=== PATIENT | male | born 1965 | race Caucasian/White ===

== ENCOUNTER 2024-02-12 10:55 | Emergency (ER) | payer BC, OTHER ==
[2024-02-12 11:27] VITALS: RESP 18; TEMP 98.1
--- NOTE | 2024-02-12 11:43 | ED ---
Fall HPI - General Chief Complaint: Fall Stated Complaint: Fall Time Seen by Provider: 02/12/24 11:15 Source: patient, RN notes reviewed Mode of arrival: ambulatory - History of Present Illness Initial Comments: 58-year-old male presenting with low back pain x 4 days status post fall. Patient states he was sitting down on a chair and accidentally fell, hitting the metal chair onto his lower back on the way down. Patient reports the bruising started shortly after that and began in his lower back but has spread around his sides. He also reports a fluctuant mass in the middle of his lower back. Patient states his pain has been controlled, he has been able to work, and re ports he went golfing yesterday as well. He is mostly concerned about the bruising at this time and is concerned for internal bleed. Denies thinners. Denies numbness, tingling, weakness in his legs. Denies bowel or bladder incontinence. Patient did not hit his head or lose consciousness. - Related Data Home Medications Medication Instructions Recorded Confirmed HYDROcodone/APAP 5-325MG [Blanco 5 mg PO Q4-6H PRN 02/18/15 02/18/15 5-325] Meloxicam [Mobic] 7.5 mg PO DAILY 02/18/15 02/18/15 Omeprazole [PriLOSEC] 20 mg PO DAILY 02/18/15 02/18/15 lisinopriL [Prinivil] 20 mg PO BID 02/18/15 02/18/15 Allergies Allergy/AdvReac Type Severity Reaction Status Date / Time No Known Allergies Allergy Verified 02/12/24 11:04 Review of Systems ROS Statement: Those systems with pertinent positive or pertinent negative responses have been documented in the HPI. ROS Other: All systems not noted in ROS Statement are negative. Past Medical History Past Medical History: Hypertension History of Any Multi-Drug Resistant Organisms: None Reported Additional Past Surgical History / Comment(s): right ankle Past Psychological History: No Psychological Hx Reported Past Alcohol Use History: Occasional Past Drug Use History: None Reported General Exam Limitations: no limitations General appearance: alert, in no apparent distress Head exam: Present: atraumatic, normocephalic, normal inspection Eye exam: Present: normal appearance, PERRL, EOMI. Absent: scleral icterus, conjunctival injection, periorbital swelling ENT exam: Present: normal exam, mucous membranes moist Neck exam: Present: normal inspection. Absent: tenderness, meningismus, lymphadenopathy Respiratory exam: Present: normal lung sounds bilaterally. Absent: respiratory distress, wheezes, rales, rhonchi, stridor Cardiovascular Exam: Present: regular rate, normal rhythm, normal heart sounds. Absent: systolic murmur, diastolic murmur, rubs, gallop, clicks GI/Abdominal exam: Present: soft, normal bowel sounds. Absent: distended, tenderness, guarding, rebound, rigid Back exam: Present: full ROM, tenderness, other (Full range of motion and strength of bilateral lower extremities with full sensation and dorsalis pedis pulses bilaterally. No saddle anesthesia.). Absent: normal inspection (Black/blue contusions diffusely present on low back extending to bilateral sides into abdomen. There is colorless, fluctuant mass present along the lumbar portion of spine with mild tenderness to palpation. No warmth or drainage present.), CVA tenderness (R), CVA tenderness (L), paraspinal tenderness Neurological exam: Present: alert, oriented X3, CN II-XII intact Psychiatric exam: Present: normal affect, normal mood Skin exam: Present: warm, dry, intact. Absent: rash Course Vital Signs 02/12/24 11:02 Temperature 98.1 F Pulse Rate 102 H Respiratory 18 Rate Blood Pressure 149/90 O2 Sat by Pulse 99 Oximetry Medical Decision Making - Medical Decision Making Was pt. sent in by a medical professional or institution (, [facility], [employer]AT CLEANING SUPERVISOR, urgent care, hospital, or residential...) When possible be specific @ -No Did you speak to anyone other than the patient for history (EMS, parent, family, police, friend...)? What history was obtained from this source @ -Patient's family member supplemented history Did you review nursing and triage notes (agree or disagree)? Why? @ -I reviewed and agree with nursing and triage notes Were old charts reviewed (outside hosp., previous admission, EMS record, old EKG, old radiological studies, urgent care reports/EKG's, residential records)? Report findings @ -No old charts were reviewed Differential Diagnosis (chest pain, altered mental status, abdominal pain women, abdominal pain men, vaginal bleeding, weakness, fever, dyspnea, syncope, headache, dizziness, GI bleed, back pain, seizure, CVA, palpatations, mental h ealth, musculoskeletal)? @ -Differential Musculoskeletal Muscular strain, contusion, ligament sprain, fracture, arthritis, septic arthritis, bursitis, cellulitis, muscle spasm, nerve compression, DVT, arterial occlusion, herpes zoster, electrolyte abnormality, tumor.... This is not meant to be in all inclusive list EKG interpreted by me (3pts min.). @ -None X-rays interpreted by me (1pt min.). @ -None done CT interpreted by me (1pt min.). @ -CT abdomen pelvis revealed large collection posterior subcu tissues, possible large hematoma. No acute intra-abdominal abnormality. CT lumbar spine rev ealed L2 level degenerative disc changes greatest at L2-3, residual disc bulge at this level U/S interpreted by me (1pt. min.). @ -None done What testing was considered but not performed or refused? (CT, X-rays, U/S, labs)? Why? @ -None What meds were considered but not given or refused? Why? @ -None Did you discuss the management of the patient with other professionals (professionals i.e. , PA, BOAT CLEANING SUPERVISOR, lab, RT, psych nurse, social media coordinator, automatic machine attendant, teacher, traffic officer, pillowcase cleaner)? Give summary @ -No Was smoking cessation discussed for >3mins.? @ -No Was critical care preformed (if so, how long)? @ -No Were there social determinants of health that impacted care today? How? (Homelessness, low income, unemployed, alcoholism, drug addiction, transportation, low edu. Level, literacy, decrease access to med. care, prison, rehab)? @ -No Was there de-escalation of care discussed even if they declined (Discuss DNR or withdrawal of care, Hospice)? DNR status @ -No What co-morbidities impacted this encounter? (DM, HTN, Smoking, COPD, CAD, Cancer, CVA, ARF, Chemo, Hep., AIDS, mental health diagnosis, sleep apnea, morbid obesity)? @ -None Was patient admitted / discharged? Hospital course, mention meds given and route, prescriptions, significant lab abnormalities, going to OR and other per tinent info. @ -Patient was discharged. Patient was seen and evaluated for low back pain x 5 days with diffuse bruising status post mechanical fall. Vitals are within normal limits. Physical exam reveals large hematoma and diffuse back and flank bruising. There are no alarm symptoms present. Patient is neurovascularly intact. CT reveals large collection of posterior subcutaneous tissue, likely large hematoma, no acute intra-abdominal abnormality. Lab work remarkable for mildly elevated liver enzymes. Discussed findings with patient. There are no signs of emergent etiology at this time. Discussed hematoma well gradually resolve with time on its own. Supportive care discussed. Strict alarm/return symptoms discussed with patient and family member in detail and they show understanding and agree to plan. Advised follow-up with PCP for reevaluation and for further evaluation of liver enzymes. Patient discharged in stable condition. Case discussed with Dr. Patel Undiagnosed new problem with uncertain prognosis? @ -No Drug Therapy requiring intensive monitoring for toxicity (Heparin, Nitro, Insulin, Cardizem)? @ -No Were any procedures done? @ -No Diagnosis/symptom? @ -Hematoma of lower back Acute, or Chronic, or Acute on Chronic? @ -Acute Uncomplicated (without systemic symptoms) or Complicated (systemic symptoms)? @ -Uncomplicated Side effects of treatment? @ -No Exacerbation, Progression, or Severe Exacerbation? @ -No Poses a threat to life or bodily function? How? (Chest pain, [place], [place], pneumonia, PE, COPD, DKA, ARF, appy, cholecystitis, CVA, Diverticulitis, Homicidal, Suicidal, threat to staff... and all critical care pts) @ -Low likelihood - Lab Data Result diagrams: 02/12/24 12:21 02/12/24 12:21 Lab Results 02/12/24 02/12/24 02/12/24 Range/Units 12:21 12:21 12:21 WBC 8.1 (3.8-10.6) k/uL RBC 3.54 L (4.30-5.90) m/uL Hgb 12.0 L (13.0-17.5) gm/dL Hct 36.1 L (39.0-53.0) % MCV 102.2 H (80.0-100.0) fL MCH 33.9 (25.0-35.0) pg MCHC 33.2 (31.0-37.0) g/dL RDW 12.7 (11.5-15.5) % Plt Count 277 (150-450) k/uL MPV 7.7 Neutrophils % 74 % Lymphocytes % 14 % Monocytes % 5 % Eosinophils % 1 % Basophils % 1 % Neutrophils # 6.0 (1.3-7.7) k/uL Lymphocytes # 1.1 (1.0-4.8) k/uL Monocytes # 0.4 (0-1.0) k/uL Eosinophils # 0.1 (0-0.7) k/uL Basophils # 0.1 (0-0.2) k/uL Macrocytosis Slight PT 9.4 L (10.0-12.5) sec INR 0.8 (<1.2) APTT 22.4 (22.0-30.0) sec Sodium 137 (137-145) mmol/L Potassium 5.0 (3.5-5.1) mmol/L Chloride 104 (98-107) mmol/L Carbon Dioxide 26 (22-30) mmol/L Anion Gap 7 mmol/L BUN 16 (9-20) mg/dL Creatinine 0.93 (0.66-1.25) mg/dL Est GFR (CKD-EPI)AfAm >90 (>60 ml/min/1.73 sqM) Est GFR (CKD-EPI)NonAf >90 (>60 ml/min/1.73 sqM) Glucose 94 (74-99) mg/dL Calcium 9.4 (8.4-10.2) mg/dL Total Bilirubin 1.2 (0.2-1.3) mg/dL AST 88 H (17-59) U/L ALT 93 H (4-49) U/L Alkaline Phosphatase 75 (38-126) U/L Total Protein 7.2 (6.3-8.2) g/dL Albumin 4.6 (3.5-5.0) g/dL Disposition Clinical Impression: Traumatic hematoma of lower back Disposition: HOME SELF-CARE Condition: Stable Instructions (If sedation given, give patient instructions): Hematoma (ED) Additional Instructions: Please follow-up with PCP. Please return to the Emergency Department if sym ptoms worsen or any other concerns. Is patient prescribed a controlled substance at d/c from ED?: No Referrals: Daryn Dumont MD [Primary Care Provider] - 1-2 days Time of Disposition: 14:55
[2024-02-12 12:40] LABS: Basophils # (A) 0.1 k/uL (0-0.2); Basophils % (A) 1 %; Eosinophils # (A) 0.1 k/uL (0-0.7); Eosinophils % (A) 1 %; HCT 36.1 % (39.0-53.0); Lymphocytes # (A) 1.1 k/uL (1.0-4.8); Lymphocytes % (A) 14 %; MCH 33.9 pg (25.0-35.0); MCHC 33.2 g/dL (31.0-37.0); MCV 102.2 fL (80.0-100.0); Macrocytosis Slight; Mean Platelet Volume 7.7; Monocytes # (A) 0.4 k/uL (0-1.0); Monocytes % (A) 5 %; Neutrophils % (A) 74 %; Platelet Count 277 k/uL (150-450); RBC 3.54 m/uL (4.30-5.90); RDW 12.7 % (11.5-15.5); WBC 8.1 k/uL (3.8-10.6)
[2024-02-12 12:58] LABS: INR 0.8 (<1.2); Partial Thromboplastin Time 22.4 sec (22.0-30.0); Prothrombin Time 9.4 sec (10.0-12.5)
[2024-02-12 13:01] LABS: ALT 93 U/L (4-49); AST 88 U/L (17-59); African American GFR (CKD) >90 (>60 ml/min/1.73 sqM); Albumin 4.6 g/dL (3.5-5.0); Alkaline Phosphatase 75 U/L (38-126); Anion Gap 7 mmol/L; Blood Urea Nitrogen 16 mg/dL (9-20); Calcium 9.4 mg/dL (8.4-10.2); Carbon Dioxide 26 mmol/L (22-30); Chloride 104 mmol/L (98-107); Glucose 94 mg/dL (74-99); Non-African American GFR(CKD) >90 (>60 ml/min/1.73 sqM); Sodium 137 mmol/L (137-145); Total Bilirubin 1.2 mg/dL (0.2-1.3); Total Protein 7.2 g/dL (6.3-8.2)
--- NOTE | 2024-02-12 13:39 | CT ---
EXAMINATION TYPE: CT lumbar spine wo con DATE OF EXAM: 02/12/2024 COMPARISON: None HISTORY: low back pain/fall CT DLP: combined dlp 2087.6 mGycm CONTRAST: None TECHNIQUE: CT of the lumbar spine is performed on a spiral scan at 3 mm thick sections. Reconstructed images are performed in the coronal and sagittal planes. FINDINGS: T12-L1: There is narrowing of the disc height. No focal disc herniation or significant disc bulge is evident. No spinal canal stenosis or neural foraminal stenosis is present. L1-L2: There is narrowing of the disc height. Minimal vacuum disc phenomenon is present. No focal dis c herniation or significant disc bulge is evident. No spinal canal stenosis or neural foraminal manuel nosis is present L2-L3: There is loss of disc height this level. Vacuum disc phenomenon is present. Residual disc bulg ing is present with moderate anterior thecal sac impression. No AP spinal canal stenosis is present n eural foramen are patent. L3-L4: Broad Based disc bulge is present with moderate anterior thecal sac compression. No AP spinal canal stenosis is present. There is moderate foraminal narrowing. L4-L5: Pedicle screws are present L4-L5 and S1 this causes beam hardening artifact in some limitation . No obvious spinal canal stenosis is present. The neural foramen appear patent. L5-S1: Pedicle screws are present with beam hardening artifact in some limitation. Minimal right late ral recess narrowing may be present. Neural foramen appear patent. Endplate spurring is present witho ut spinal canal stenosis. Vertebral alignment appears straightened. IMPRESSION: L2 level degenerative disc changes greatest at L2-3. Some residual disc bulge at this level has moder ate anterior thecal sac flattening. 2. Postsurgical changes L4-S1.
--- NOTE | 2024-02-12 14:25 | CT ---
EXAMINATION TYPE: CT abdomen pelvis wo con DATE OF EXAM: 02/12/2024 COMPARISON: None INDICATION: abdominal pain DLP: 2087.6 mGycm, Automated exposure control for dose reduction was used. CONTRAST: 0 mL of Isovue 300. Study performed without Oral Contrast TECHNIQUE: Axial images were obtained from above the diaphragm to the pubic rami in the axial plane a t 5 mm thick sections. Reconstructed images are reviewed on the computer in the coronal plane. FINDINGS: Limited CT sections are obtained the lung bases. The lung bases are clear. CT ABDOMEN: Liver: Moderate fatty infiltration of liver is present. Spleen: Normal Pancreas: Normal Adrenal glands: The adrenal glands are normal. Gallbladder: Normal Kidneys: No masses are evident. No hydronephrosis is present. No cysts are present. No renal stone s are evident. Aorta: Normal Inferior vena cava: Normal. CT PELVIS: Or pelvis is limited due to beam hardening artifact from bilateral hip prostheses. Some li mitation in the upper pelvis from postsurgical changes within the lumbar spine are also present. Few diverticuli are within the sigmoid colon. No dilated loops of bowel are evident. Study is without oral contrast limiting bowel evaluation Appendix: Normal as visualized. Urinary bladder: Limited evaluation. No obvious abnormality Genitourinary structures: Prostate is poorly visualized Osseous structures: No suspicious lytic or sclerotic lesions. No acute fractures are evident. There is a subcutaneous collection within the posterior pelvis. This measures 15.7 x 4.3 x 12.2 cm an d may be a large hematoma. IMPRESSION: 1. Large collection posterior subcutaneous tissues may be a large hematoma. 2. No acute intra-abdominal abnormality
[2024-02-12 15:43] VITALS: BP 176/81; PULSE 76
== END 2024-02-12 15:22 | disposition home or self-care (01) ==
LOC: EC 10:55
DX: S30.0XXA Contusion of lower back and pelvis, initial encounter (principal); W07.XXXA Fall from chair, initial encounter
CPT/HCPCS: 36415; 72131; 74176; 80053; 85025; 85610; 85730; 99284